=== PATIENT | male | born 1985 | race Caucasian/White ===

== ENCOUNTER 2017-09-03 00:35 | Emergency (ER) | payer OTHER ==
[2017-09-03] MEDS ORDERED: Ketorolac 30 MG/ML SDV IVPUSH ONE (00:51)
[2017-09-03] MEDS ORDERED: fentaNYL 100 MCG/2 ML SDV IVPUSH ONE (00:51)
[2017-09-03] MEDS ORDERED: Sodium Chloride 0.9% 1,000 ML IV ONE (00:58)
[2017-09-03 01:19] LABS: CHLORIDE,CL 103 mEq/L (98-106); SODIUM,NA 141 mEq/L (136-145)
[2017-09-03] MEDS ORDERED: Ondansetron 4 MG/2 ML SDV IVPUSH PRN ×2 (01:34→02:00)
[2017-09-03] MEDS ORDERED: Sodium Chloride 0.9% 1,000 ML IV SCH (01:45)
[2017-09-03] MEDS ORDERED: Tamsulosin 0.4 MG Cap.ER PO ONE (01:57)
[2017-09-03] MEDS ORDERED: fentaNYL 100 MCG/2 ML SDV IVPUSH PRN (01:58)
[2017-09-03] MEDS ORDERED: Ketorolac 30 MG/ML SDV IVPUSH PRN (01:58)
--- NOTE | 2017-09-03 02:07 | EDM.PDOC ---
ED HPI GENERAL MEDICAL PROBLEM - General Chief Complaint: General Stated Complaint: kidney stone or kidney infection Time Seen by Provider: 09/03/17 01:10 Source of Information: Reports: Patient History Limitations: Reports: No Limitations - History of Present Illness INITIAL COMMENTS - FREE TEXT/NARRATIVE: Sae is a 32 yo male who presents via private vehicle with complaints of right low back pain. States it came on all of a sudden tonight and has been constant since. Admits the pain will radiate around into his right groin area. Feels he has the urge to urinate a lot but is not able to get a lot of urine out. Admits to feeling nauseated. Thinks he has a kidney stone but has never had one before. Otherwise up until onset of pain was feeling well. States he does drink a lot of soda every day. Onset: Today, Sudden Duration: Waxing/Waning Location: Reports: Back, Pelvis Right Flank Pain Score (Numeric/FACES): 9 - Related Data Allergies Allergy/AdvReac Type Severity Reaction Status Date / Time penicillin G Allergy Rash Verified 09/03/17 00:39 Home Meds: Home Meds Losartan/Hydrochlorothiazide [Losartan-HCTZ 100-25 MG] 1 each PO DAILY 09/03/17 [History] Past Medical History Cardiovascular History: Reports: Hypertension - Past Surgical History HEENT Surgical History: Reports: Other (See Below) Other HEENT Surgeries/Procedures: WISDOM TEETH Musculoskeletal Surgical History: Reports: Arthroscopic Knee Social & Family History - Family History Family Medical History: Noncontributory - Tobacco Use Smoking Status *Q: Never Smoker Second Hand Smoke Exposure: No ED ROS GENERAL - Review of Systems Review Of Systems: See Below Constitutional: Reports: Decreased Appetite. Denies: Fever, Chills HEENT: Reports: No Symptoms Respiratory: Reports: No Symptoms. Denies: Shortness of Breath, Wheezing Cardiovascular: Reports: No Symptoms. Denies: Chest Pain, Palpitations GI/Abdominal: Reports: Nausea. Denies: Bloody Stool, Constipation, Diarrhea, Vomiting : Reports: Flank Pain, Frequency Musculoskeletal: Reports: No Symptoms Skin: Reports: No Symptoms Neurological: Reports: No Symptoms ED EXAM, GENERAL - Physical Exam Exam: See Below Exam Limited By: No Limitations General Appearance: Alert, Mild Distress. No: Anxious Ears: Normal External Exam, Hearing Grossly Normal Nose: Normal Inspection, No Blood Throat/Mouth: Normal Lips, Normal Voice, No Airway Compromise Head: Atraumatic, Normocephalic Neck: Normal Inspection, Supple Respiratory/Chest: No Respiratory Distress, Lungs Clear, Normal Breath Sounds, No Accessory Muscle Use Cardiovascular: Regular Rate, Rhythm, No Edema, No Murmur GI/Abdominal: Normal Bowel Sounds, Soft, Non-Tender, No Organomegaly Extremities: Normal Inspection, No Pedal Edema Neurological: Alert, Normal Cognition, No Motor/Sensory Deficits Psychiatric: Normal Affect, Normal Mood Skin Exam: Warm, Dry, Intact Course - Vital Signs Last Recorded V/S: Last Vital Signs Temp 97.9 F 09/03/17 01:06 Pulse 72 09/03/17 01:06 Resp 18 09/03/17 01:06 BP 187/77 H 09/03/17 01:06 Pulse Ox 98 09/03/17 01:06 - Orders/Labs/Meds Orders: Active Orders 24 hr Category Date Time Status Abdomen Pelvis wo Cont [CT] Stat Exams 09/03/17 00:50 Taken Ketorolac [Toradol] Med 09/03/17 01:58 Active 30 mg IVPUSH Q6H PRN Ondansetron [Zofran] Med 09/03/17 02:00 Active 4 mg IVPUSH Q4H PRN Ondansetron [Zofran] Med 09/03/17 01:34 Active 4 mg IVPUSH Q6H PRN fentaNYL [Sublimaze] Med 09/03/17 01:58 Active 25 - 50 mcg IVPUSH Q2H PRN Medication Orders Fentanyl (Sublimaze) 25 - 50 mcg IVPUSH Q2H PRN PRN Reason: Pain Last Admin: 09/03/17 05:26 Dose: 50 mcg Ketorolac Tromethamine (Toradol) 30 mg IVPUSH Q6H PRN PRN Reason: Pain Stop: 09/08/17 01:59 Ondansetron HCl (Zofran) 4 mg IVPUSH Q6H PRN PRN Reason: Nausea Ondansetron HCl (Zofran) 4 mg IVPUSH Q4H PRN PRN Reason: Nausea Last Admin: 09/03/17 05:32 Dose: 4 mg Labs: Laboratory Tests 09/03/17 09/03/17 09/03/17 Range/Units 00:51 00:58 00:58 WBC 9.1 (5.0-10.0) 10^3/uL RBC 5.41 (4.50-6.00) 10^6/uL Hgb 15.7 (14.0-18.0) g/dL Hct 43.3 (40.0-54.0) % MCV 80.0 L (82.0-94.0) fL MCH 29.0 (27.0-32.0) pg MCHC 36.3 (33.0-38.0) g/dL RDW Coeff of Mart 12.4 (11.0-15.0) % Plt Count 267 (150-400) 10^3/uL Neut % (Auto) 48.1 (35-85) % Lymph % (Auto) 41.2 (10-55) % [place] % (Auto) 8.3 (0-16) % Eos % (Auto) 2.0 (0-5) % Baso % (Auto) 0.4 (0-3) % Neut # (Auto) 4.38 (1.80-7.00) 10^3/uL Lymph # (Auto) 3.76 (1.00-4.80) 10^3/uL [place] # (Auto) 0.76 (0.00-0.80) 10^3/uL Eos # (Auto) 0.18 (0.00-0.45) 10^3/uL Baso # (Auto) 0.04 10^3/uL Sodium 141 (136-145) mEq/L Potassium 3.9 (3.5-5.0) mEq/L Chloride 103 (98-106) mEq/L Carbon Dioxide 29 (21-32) mmol/L BUN 14 (7-18) mg/dL Creatinine 1.2 (0.7-1.3) mg/dL Est Cr Clr Drug Dosing TNP Estimated GFR (MDRD) > 60 (>=60) mL/min Glucose 141 H D (75-99) mg/dL Calcium 8.8 (8.4-10.1) mg/dL Urine Color Shreya (YELLOW) Urine Appearance Cloudy (CLEAR) Urine pH 5.0 (4.5-8.0) Ur Specific [place] >= 1.030 H (1.003-1.020) Urine Protein 100 H (NEGATIVE) mg/dL Urine Glucose (UA) Negative (NEGATIVE) mg/dL Urine Ketones Trace H (NEGATIVE) mg/dL Urine Occult Blood Large H (NEGATIVE) Urine Nitrite Negative (NEGATIVE) Urine Bilirubin Negative (NEGATIVE) Urine Urobilinogen 0.2 (0.2-1.0) EU/dL Ur Leukocyte Esterase Negative (NEGATIVE) Urine RBC >100 H (0-5) /HPF Urine WBC Not seen (0-5) /HPF Urine Mucus Few H (NOT SEEN) /HPF Meds: Medications Generic Name Dose Route Start Last Admin Trade Name Freq PRN Reason Stop Dose Admin Fentanyl 25 - 50 mcg 09/03/17 01:58 09/03/17 05:26 Sublimaze IVPUSH 50 mcg Q2H PRN Administration Pain Ketorolac Tromethamine 30 mg 09/03/17 01:58 Toradol IVPUSH 09/08/17 01:59 Q6H PRN Pain Ondansetron HCl 4 mg 09/03/17 01:34 Zofran IVPUSH Q6H PRN Nausea Ondansetron HCl 4 mg 09/03/17 02:00 09/03/17 05:32 Zofran IVPUSH 4 mg Q4H PRN Administration Nausea Discontinued Medications Generic Name Dose Route Start Last Admin Trade Name Freq PRN Reason Stop Dose Admin Fentanyl 50 mcg 09/03/17 00:51 09/03/17 01:03 Sublimaze IVPUSH 09/03/17 00:52 50 mcg ONETIME ONE Administration Sodium Chloride 1,000 mls @ 999 mls/hr 09/03/17 00:58 09/03/17 01:06 Normal Saline IV 09/03/17 01:58 999 mls/hr .BOLUS ONE Administration Sodium Chloride 1,000 mls @ 200 mls/hr 09/03/17 01:45 09/03/17 02:06 Normal Saline IV 09/03/17 06:44 200 mls/hr ASDIRECTED NANDO Administration Ketorolac Tromethamine 30 mg 09/03/17 00:51 09/03/17 00:56 Toradol IVPUSH 09/03/17 00:52 30 mg ONETIME ONE Administration Tamsulosin HCl 0.4 mg 09/03/17 01:57 09/03/17 02:05 Flomax PO 09/03/17 01:58 0.4 mg ONETIME ONE Administration - Radiology Interpretation Free Text/Narrative:: Reviewed CT of the abd/pelvis and also Radiologist confirmed 4.3mm stone at the UV junction. CT Results Date: 09/03/17 CT Results Time: 02:00 - Re-Assessments/Exams Free Text/Narrative Re-Assessment/Exam: 09/03/17 02:13 Will keep extended ER for IV fluids and pain control. Orders written. Pain is much improved. Sae had an uneventful night. He was not able to the pass the stone. Pain is currently more of an ache and he admits tolerable. Will discharge home at this time. All questions answered. Departure - Departure Time of Disposition: 09:15 Disposition: Home, Self-Care 01 Clinical Impression: Kidney stone on right side - Discharge Information Instructions: Kidney Stones, [id number] Referrals: Alexey Fontaine MD [Primary Care Provider] - Forms: ED Department Discharge Additional Instructions: 1) Alpine 5/325mg - 1 tablet every 6 hours as needed for break thru pain 2) Toradol 10mg - 1 tablet every 6 - 8 hours as needed for pain 3) Flomax 0.4mg - 1 tablet daily 4) Strain urine 5) Push fluids 6) If any fevers, worsening pain or unable to pass the stone, return for reevaluation, as discussed. - Problem List & Annotations (1) Kidney stone on right side SNOMED Code(s): 82512521 Code(s): N20.0 - CALCULUS OF KIDNEY Status: Acute Current Visit: Yes - Problem List Review Problem List Initiated/Reviewed/Updated: Yes - My Orders Last 24 Hours: My Active Orders 09/03/17 00:50 Abdomen Pelvis wo Cont [CT] Stat 09/03/17 01:34 Ondansetron [Zofran] 4 mg IVPUSH Q6H PRN 09/03/17 01:58 Ketorolac [Toradol] 30 mg IVPUSH Q6H PRN fentaNYL [Sublimaze] 25 - 50 mcg IVPUSH Q2H PRN 09/03/17 02:00 Ondansetron [Zofran] 4 mg IVPUSH Q4H PRN - Assessment/Plan Last 24 Hours: My Active Orders 09/03/17 00:50 Abdomen Pelvis wo Cont [CT] Stat 09/03/17 01:34 Ondansetron [Zofran] 4 mg IVPUSH Q6H PRN 09/03/17 01:58 Ketorolac [Toradol] 30 mg IVPUSH Q6H PRN fentaNYL [Sublimaze] 25 - 50 mcg IVPUSH Q2H PRN 09/03/17 02:00 Ondansetron [Zofran] 4 mg IVPUSH Q4H PRN Plan: See course and additional instructions.
== END 2017-09-03 09:33 | disposition home or self-care (01) ==
LOC: CC.ED 00:35
DX: N13.2 Hydronephrosis with renal and ureteral calculous obstruction (principal); I10 Essential (primary) hypertension; Z88.0 Allergy status to penicillin; Z79.899 Other long term (current) drug therapy
CPT/HCPCS: 36415; 74176; 80048; 81001; 85025; 96361; 96374; 96375; 99284; A9270-GY; J1885; J2405; J3010; J7030

== ENCOUNTER 2023-12-10 09:47 | Day surgery (SDC) | payer BC ==
[2023-12-10] MEDS: Lactated Ringers 1,000 ML IV SCH (10:02)
[2023-12-10] MEDS ORDERED: Midazolam 1 MG/ML 2 ML SDV ONE (10:15)
[2023-12-10] MEDS ORDERED: Propofol 200 MG/20 ML SDV ONE ×2 (10:15)
[2023-12-10] MEDS ORDERED: ePHEDrine 50 MG/ML SDV ONE (10:15)
[2023-12-10] MEDS ORDERED: fentaNYL 50 MCG/ML SDV ONE ×2 (10:15)
[2023-12-10] MEDS ORDERED: Ketamine 200 MG/20 ML MDV ONE (10:15)
[2023-12-10] MEDS ORDERED: Flumazenil 0.1 MG/ML 10 ML MDV ONE (10:15)
== END 2023-12-10 11:45 | disposition home or self-care (01) ==
LOC: CC.SDS 09:47
PROVIDERS: ATTEND Family Medicine
DX: K51.90 Ulcerative colitis, unspecified, without complications (principal); I10 Essential (primary) hypertension; Z79.899 Other long term (current) drug therapy; Z88.0 Allergy status to penicillin
CPT/HCPCS: 00811; J2250; J2704; J3010; J3490; J7120